=== PATIENT | female | born 1955 | race Caucasian/White ===

== ENCOUNTER 2016-10-23 19:00 | Emergency (ER) | payer OTHER ==
[~2016-10-23] VITALS: Ht 172.7 cm; Wt 108.5 kg
[2016-10-23 19:07] VITALS: BP 181/105; PULSE 87; RESP 16; TEMP 98.2; O2SAT 96
--- NOTE | 2016-10-23 19:54 | PD ---
HPI Chief Complaint: Musculoskeletal Complaint Time Seen by Provider: 19:51 Travel History International Travel<30 days: No Contact w/Intl Traveler<30days: No Traveled to known affect area: No History of Present Illness HPI 60-year-old female presents the emergency department status post injury to the right toe. Patient states at approximately 4:00 this afternoon she was opening her screen door when it was blown backwards and hit her in the right foot causing an apparent dislocation of the right pinky toe. Patient states he reached down and pulled it back into place and heard a "pop". She is here for evaluation. She french taped the pinky toe to the fourth toe on the right foot. Does have 6 out of 10 pain in this area. She denies any other injury. There is no abrasion or open wound. She has no known drug allergies. PFSH Past Medical History Diminished Hearing: No Hypertension: Yes Medical other: Yes (RLS) Tetanus Vaccination: > 5 Years Influenza Vaccination: No Past Surgical History Other Surgery: Yes (left knee replacemnt) Social History Alcohol Use: Yes (Wine occ) Tobacco Use: No Substance Use: No Allergies-Medications (Allergen,Severity, Reaction): Coded Allergies: No Known Allergies (Unverified , 10/23/16) Review of Systems Except as stated in HPI: all other systems reviewed are Neg General / Constitutional: No: Fever Eyes: No: Visual changes HENT: No: Headaches Cardiovascular: No: Chest Pain or Discomfort Respiratory: No: Shortness of Breath Gastrointestinal: No: Abdominal Pain Genitourinary: No: Dysuria Musculoskeletal: Positive: Arthralgias, Limited ROM, Pain Skin: No Rash Neurologic: No: Weakness Psychiatric: No: Depression Endocrine: No: Polydipsia Hematologic/Lymphatic: No: Easy Bruising Physical Exam Narrative GENERAL: Patient appears normal. Distress. SKIN: Warm and dry. Normal color. Normal turgor. There is ecchymosis at the base of the fifth right phalanx of the foot. HEAD: Atraumatic. Normocephalic. EYES: Pupils equal and round. No scleral icterus. No injection or drainage. ENT: No nasal bleeding or discharge. Mucous membranes pink and moist. Pharynx is clear. NECK: Trachea midline. Supple nontender. CARDIOVASCULAR: Regular rate and rhythm. RESPIRATORY: No accessory muscle use. Clear to auscultation. Breath sounds equal bilaterally. MUSCULOSKELETAL: Extremities without clubbing, cyanosis, or edema. No obvious deformities. She has tenderness at the base of the right fifth phalanx. X- rays ordered. NEUROLOGICAL: Awake and alert. No obvious cranial nerve deficits. Motor grossly within normal limits. Five out of 5 muscle strength in the arms and legs. Normal speech. PSYCHIATRIC: Appropriate mood and affect; insight and judgment normal. Data Data Last Documented VS Vital Signs Date Time Temp Pulse Resp B/P Pulse Ox O2 Delivery O2 Flow Rate FiO2 10/23/16 19:07 98.2 87 16 181/105 96 Orders Foot, Complete ([id number]) (10/23/16 19:32) [facility] Medical Decision Making Medical Screen Exam Complete: Yes Emergency Medical Condition: Yes Differential Diagnosis Right foot contusion. Right toe dislocation. Right toe fracture. Narrative Course Patient is medically stable at time of exam. Ice pack is applied to the injured area. X-ray of the right foot is ordered. X-ray shows an oblique fracture of the proximal right fifth digit of the foot. French tape is ordered in place by the patient. Alignment is good. Postop shoe is placed for patient comfort. Patient should keep french taping this area for the next 6 weeks. Patient with a postop shoe or stiff soled shoe until healed. Patient is to use ice, Tylenol, ibuprofen as needed. Patient can follow with hospital mortician or orthopedic if necessary. Diagnosis Primary Impression: Fracture of right toe Qualified Code: S92.514A - Closed nondisplaced fracture of proximal phalanx of lesser toe of right foot, initial encounter Referrals: Translator as needed Patient Instructions: General Instructions, Toe Fracture (ED) Additional Instructions: X-ray shows an oblique fracture of the proximal right fifth digit of the foot. French tape is ordered in place by the patient. Alignment is good. Postop shoe is placed for patient comfort. Patient should keep french taping this area for the next 6 weeks. Patient with a postop shoe or stiff soled shoe until healed. Patient is to use ice, Tylenol, ibuprofen as needed. Patient can follow with hospital mortician or orthopedic if necessary. Med/Other Pt SpecificInfo: No Meds Exist/No RX given Disposition: DISCHARGE HOME Condition: Stable Rodolfo Tejada October 23, 2016 19:54
--- NOTE | 2016-10-23 20:23 | RADHPO ---
EXAM DATE/TIME: 10/23/2016 20:07 [facility] COMPARISON: No previous studies available for comparison. INDICATIONS : Right 5th toe pain from injury today. MEDICAL HISTORY : Hypertension. SURGICAL HISTORY : Hysterectomy. Left partial knee replacement. ENCOUNTER: Initial ACUITY: 1 day PAIN SCORE: 8/10 LOCATION: Right 5th toe FINDINGS: There is a minimally displaced oblique fracture in the distal shaft region of the fifth toe proximal phalanx. No other fractures are seen. Mild hallux valgus and mild degenerative changes of the first metatarsophalangeal joint and sesamoids . Tibial sesamoid is bipartite. CONCLUSION: Minimally displaced oblique fracture in the distal shaft region, little toe proximal phalanx. Ralph Cross MD on October 23, 2016 at 20:20 Board Certified Radiologist. This report was verified electronically.
== END 2016-10-23 20:46 | disposition home or self-care (01) ==
LOC: PHEFT 19:00
DX: S92.514A Nondisplaced fracture of proximal phalanx of right lesser toe(s), initial encounter for closed fracture (principal); I10 Essential (primary) hypertension; W22.8XXA Striking against or struck by other objects, initial encounter; Y93.89 Activity, other specified; Y92.89 Other specified places as the place of occurrence of the external cause; Y99.8 Other external cause status
CPT/HCPCS: 73630; 99283; L3260